=== PATIENT | male | born 1990 | race African-American/Black ===

== ENCOUNTER 2019-05-23 17:36 | Emergency (ER) | payer SELFPAY ==
[~2019-05-23] VITALS: Ht 182.9 cm; Wt 76.2 kg
[2019-05-23 18:07] VITALS: Ht 182.9 cm; Wt 76.2 kg
[2019-05-23 21:34] LABS: BASOPHIL % 0.4 % (0-2); PLATELET COUNT 337 x10^3mcL (130-400); RED CELL DISTRIBUTION WIDTH 13.4 % (11.5-14.5)
[2019-05-23 21:42] LABS: CALCIUM 8.6 mg/dL (8.5-10.1); CARBON DIOXIDE 22.3 mmol/L (21-32); CHLORIDE SERUM 101 mmol/L (98-107); CREATININE SERUM 1.1 mg/dL (0.7-1.3); GFR1 > 60 mL/min; GLUCOSE SERUM 93 mg/dL (74-106); POTASSIUM SERUM 4.4 mmol/L (3.5-5.1); SODIUM SERUM 137 mmol/L (136-145)
[2019-05-23 21:47] LABS: ALBUMIN 4.3 g/dL (3.4-5.0); ALKALINE PHOSPHATASE 72 U/L (46-116); ALT/SGPT 37 U/L (16-63); AST/SGOT 18 U/L (15-37); BILIRUBIN TOTAL 0.8 mg/dL (0.20-1.00); TOTAL PROTEIN, SERUM 8.1 g/dL (6.4-8.2)
[2019-05-24 01:07] VITALS: BP 122/74
== END 2019-05-24 00:30 | disposition home or self-care (01) ==
LOC: ED 17:36
PROVIDERS: Emergency Medicine
DX: M54.41 Lumbago with sciatica, right side (principal); M51.36 Other intervertebral disc degeneration, lumbar region; J45.909 Unspecified asthma, uncomplicated
CPT/HCPCS: J1885; J3010; J7030; Q0162; Q9967